=== PATIENT | male | born 1980 | race Caucasian/White ===

== ENCOUNTER 2017-12-18 21:01 | Emergency (ER) | payer BC ==
[~2017-12-18] VITALS: Ht 160 cm; Wt 89.8 kg
[2017-12-18 21:15] VITALS: BP 110/67
[2017-12-18] MEDS ORDERED: Bacitracin Oint UD TOPIC ONE ×2 (21:24→21:30)
[2017-12-18] MEDS ORDERED: Neosporin Opth Oint ONE (21:25)
[2017-12-18] MEDS ORDERED: Neosporin Oint Ud Pkt TOPIC ONE (21:30)
[2017-12-18] MEDS ORDERED: HYDROmorphone 1mg/ml Carpuject IVP ONE (21:30)
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
[2017-12-18] MEDS ORDERED: Vancomycin 1.5gm/D5W 250ml 250 ML IVPB ONE (22:00)
[2017-12-18] MEDS ORDERED: Cephalexin 500mg cap ORAL ONE (22:15)
[2017-12-18] MEDS ORDERED: CEPHALEXIN500 MG ORAL (22:16)
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
[2017-12-18 22:24] VITALS: BP 108/65
[2017-12-18] MEDS ORDERED: HYDROCODON-ACE1 EA15 ORAL (22:28)
== END 2017-12-18 22:30 | disposition home or self-care (01) ==
LOC: EMR 21:40
DX: S31.21XA Laceration without foreign body of penis, initial encounter (principal); X58.XXXA Exposure to other specified factors, initial encounter; Y93.9 Activity, unspecified; Y92.9 Unspecified place or not applicable; G83.9 Paralytic syndrome, unspecified
CPT/HCPCS: 87070; 87181; 87205; 96374; 96375; 99284; J1170